=== PATIENT | male | born 1930 | race Caucasian/White ===

== ENCOUNTER 2017-08-25 09:38 | Emergency (ER) | payer MEDICARE, BC ==
[~2017-08-25] VITALS: Ht 167.6 cm; Wt 104.3 kg
[~2017-08-25 09:38] MED LIST: ALLOPURINOL 30300 M1 PO; ASPIR 8181 MG PO; ASPIRIN325 PO; BACTROBAN15 GM TP; COLACE 100 MG100 MG PO; HYDROCHLOROTHIA25 M2 PO; HYDROCODON-ACE1 EAC7 PO; HYTRIN 5 M5 MG/1 CAP PO; LOPRESSOR50 PO; LOSARTAN POTAS100 MG PO; MYRBETRIQ50 MG PO; NAPROSYN500 MG PO; NORCO 5-325 TA1 EACH PO; NORVASC5 MG PO; NYSTATIN 1100000 U/M PO; OXYCODONE HCL 55 MG PO; OXYCODONE HCL5 M1 PO; PROTONIX40 M1 PO; SIMVASTATIN20 MG PO
[2017-08-25] MEDS ORDERED: ACETAMINOPHEN-1 EAC1 PO (11:37)
[2017-08-25 11:52] VITALS: BP 125/49
== END 2017-08-25 11:53 | disposition home or self-care (01) ==
LOC: M.ERS 09:38
DX: S63.254A Unspecified dislocation of right ring finger, initial encounter (principal); I10 Essential (primary) hypertension; E78.5 Hyperlipidemia, unspecified; M10.9 Gout, unspecified; Z90.49 Acquired absence of other specified parts of digestive tract; W18.39XA Other fall on same level, initial encounter; Y93.89 Activity, other specified; Y92.89 Other specified places as the place of occurrence of the external cause; Y99.8 Other external cause status

== ENCOUNTER → 2017-12-24 | Outpatient (CLI) | payer MEDICARE, BC ==
[~2017-12-24] MED LIST changes: +ACETAMINOPHEN-1 EAC1 PO
== END ==
LOC: M.RAD 11:20
DX: J90 Pleural effusion, not elsewhere classified (principal); I70.0 Atherosclerosis of aorta; I11.0 Hypertensive heart disease with heart failure; I50.9 Heart failure, unspecified; I48.0 Paroxysmal atrial fibrillation